=== PATIENT | male | born 1940 | race Caucasian/White ===

== ENCOUNTER 2018-08-04 08:49 | Inpatient (IN) | payer MEDICARE, OTHER ==
[~2018-08-04] VITALS: Ht 177.8 cm; Wt 79.5 kg
--- NOTE | ~2018-08-04 | CON ---
[facility] [address] [place] [address] CONSULTATION Name: DANILO RAMOS SR Room: [address] IN .R.#: [id number] Admission: 08/04/18 Attend Phys: Arline Dowd Discharge: Date of : 36 Report #: [id number] THIS REPORT FOR: //name// CC: Bala Stratton DATE OF SERVICE: 08/05/2018 HISTORY OF PRESENT ILLNESS: This is a 77-year-old male patient who was evaluated by me for dizziness. He said he had some dizziness yesterday. It started spontaneously without trauma. He said his eyes were jumping and he had some speech problem, but he has some speech problem in the baseline. He is better, but he is not back to his baseline. He had cardiac issues before, but he does not know whether he was having much cardiac problem when it happened. REVIEW OF SYSTEMS: Positive for associated nausea. He did have dizziness. He also vomited. 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 He had some injury to the left hand long time ago. His speech looks somewhat unusual, but I do not know how much it is baseline, looks like he does have a significant problem there in the baseline. He follows up with Dr. Ramos who is his agricultural adviser. He said he had MIs in the past. He denies any new eye, ENT, respiratory, , musculoskeletal, constitutional, dermatological, hematological, psychiatric, throat, allergic symptom associated with present symptomatology. PAST MEDICAL HISTORY: Positive for MIs. FAMILY HISTORY: Negative for early age strokes. SOCIAL HISTORY: He said he does not drink any alcohol or smoke. PHYSICAL EXAMINATION: Indicate he is alert, responsive. He can follow simple commands. Speech is somewhat unusual, but he is oriented. His memory and fund of knowledge is at his baseline. His cranial nerve examination 2-12 looks mostly unremarkable. He has amputation on the right leg, but his strength, sensation, reflexes and tone is okay on the left side. He does not have any [id number]-[id number] abnormality. I could not look at the patient's fundus. He does not have any meningeal sign. He is reasonably well-built individual who does not have any dysmorphic features of eyes, ears and face. His vision and hearing looks adequate. Cardiac examination is unremarkable. No respiratory difficulty or rhonchi was noted. Blood pressure is 123/53, pulse is 66, temperature is 98.2. LABORATORY DATA: White count is 5.2. Sodium is 137. Imaging study indicated that he had CT of the head, [place] [address] CONSULTATION Name: DANILO RAMOS SR Room: [address] IN ..#: [id number] Admission: 08/04/18 Attend Phys: Arline Dowd Discharge: Date of : 36 Report #: [id number] IMPRESSION: It is not clear what the etiology of his symptoms is. It is more likely to be systemic including ENT or cardiac pathology. However, this patient has pretty significant problem in the past and there is question of speech difficulty, so I will work him up for TIAs. We will await this workup and then decide about the further management depending upon rest of the workup. RECOMMENDATIONS: 1. MRI of the brain. 2. MRA of the head. 3. MRA of the neck. 4. If this workup shows something, we will proceed accordingly. If this workup does not show anything, then I will suggest continue to workup any systemic cause for the patient's problem. Thank you very much for this referral. By: 1207 [id number] Feliz MD /nt
--- NOTE | ~2018-08-04 | EEG ---
[address] [address] EEG STUDY REPORT Name: DANILO RAMOS SR Room: [address] IN [facility]#: [id number] Admission: 08/04/18 Attend Phys: Arline Dowd Discharge: Date of : 36 Report #: [id number] THIS REPORT FOR: //name// CC: Bala Stratton DATE OF SERVICE: 08/05/2018 This patient was admitted with myoclonic jerking. EEG was done to further evaluate that. This patient's background activity is about 9 Hz and 30 microvolt. It is a symmetrical activity. The patient goes to sleep that is associated with bilaterally symmetrical sleep spindle and vertex sharp waves. Photic stimulation is unremarkable. Throughout the record, no active epileptiform activity was noticed. IMPRESSION: This patient's EEG is intermixed with moderate amount of slowing on both sides. That is a nonspecific finding which can occur with encephalopathy, dementia, effect of psychotropic medication, etc. Clinical correlation is recommended. By: [id number] [id number] Feliz MD /nt
[~2018-08-04 08:49] MED LIST: ASPIR 8181 MG PO; ASPIRIN81 M2 PO; IMDUR 30 MG TAB30 M1 PO; IMDUR 60 MG TAB60 M1 PO; IMDUR30 MG PO; IRON PO; IRON325 PO; LISINOPRIL2.5 M1 PO; LISINOPRIL5 MG; LOPRESSOR50 PO; METOPROLOL SUCC25 M1 PO; NITROGLYCERIN0.4 MG SUBLING; PLAVIX 75 MG TA75 MG PO; PROBIOTIC1 EAC1 PO; PROBIOTIC1 EAC2 PO; SIMVASTATIN40 MG PO; VITAMIN D-32000 UNIT PO; VITAMIN D35000 UNI1 PO; VITAMINC500 PO
[2018-08-04 08:55] VITALS: BP 143/60
[2018-08-04 09:18] LABS: HEMATOCRIT 35.3 % (42.0-52.0); HEMOGLOBIN 12.3 gm/dL (14.0-18.0); MCH 30.7 pg (26.0-34.0); MCHC 34.8 g/dL (28.0-37.0); MCV 88.1 fL (80.0-100.0); MPV 6.9 fl. (7.2-11.1); NUCLEATED RBCS 0 /100WBC; PLATELET COUNT* 101 thou/uL (150-400); RDW-CV 12.9 % (10.5-14.5); WBC 5.2 thou/uL (4.0-11.0)
[2018-08-04 09:27] LABS: ANION GAP 4 mmol/L (7-16); BUN 16 mg/dL (7-18); CALCIUM 9.1 mg/dL (8.5-10.1); CHLORIDE 103 mmol/L (98-107); CO2 30 mmol/L (21-32); CREATININE 1.3 mg/dL (0.6-1.3); GLUCOSE 105 mg/dL (70-99); POTASSIUM 4.1 mmol/L (3.5-5.1); SODIUM 137 mmol/L (136-145)
[2018-08-04 09:38] LABS: ALBUMIN 3.3 g/dL (3.4-5.0); ALKALINE PHOSPHATASE 125 U/L (46-116); APTT 32.9 Seconds (25.0-31.3); PROTIME 10.6 Seconds (9.20-11.50); SGOT 17 U/L (15-37); SGPT 16 U/L (30-65); TOTAL BILIRUBIN 0.4 mg/dL (<0.1-1.0); TOTAL PROTEIN 6.1 g/dL (6.4-8.2); TROPONIN-I LEVEL <0.06 ng/mL (<0.06)
[2018-08-04 09:42] LABS: ABSOLUTE BASOPHILS 0.1 thou/uL (0.0-0.2); ABSOLUTE LYMPHOCYTES 0.8 thou/uL (0.8-5.3); ABSOLUTE MONOCYTES 0.2 thou/uL (0.0-1.2); ABSOLUTE NEUTROPHILS 4.2 thou/uL (1.6-8.1); ATYPICAL LYMPHS 4 %; PLATELET ESTIMATE ADEQUATE
[2018-08-04 09:56] LABS: NT-PRO BRAIN NAT PEPTIDE 211 pg/mL (<300)
[2018-08-04 14:06] VITALS: BP 158/69
[2018-08-04 14:54] VITALS: BP 146/66
[2018-08-04 15:05] LABS: URINE BILIRUBIN NEGATIVE (Negative); URINE BLOOD TRACE (Negative); URINE CLARITY CLEAR; URINE COLOR YELLOW; URINE GLUCOSE-RANDOM NEGATIVE (Negative); URINE KETONES NEGATIVE (Negative); URINE LEUKOCYTES-REFLEX NEGATIVE (Negative); URINE NITRITE-REFLEX NEGATIVE (Negative); URINE PROTEIN NEGATIVE (Negative); URINE UROBILINOGEN 0.2 E.U./dl (0.2-1.0)
[2018-08-04 16:00] VITALS: BP 123/60
--- NOTE | 2018-08-04 16:00 | NUR ---
PT. ARRIVED TO UNIT AT APPROX 1500. EEG COMPLETED UPON ARRIVAL TO UNIT. PT. A/OX4, VSS, MONITOR ON TRACING SR. PT. DENIES CURRENT PAIN/SOB. ON RA @ 94%. PT. DENYING DIZZINESS AT THIS TIME. ALSO HAS DENIED ANY CURRENT NAUSEA. FULL ASSESSMENT AND ADMISSION PROCESS COMPLETED, REFER TO CHARTING. PT ORIENTED TO ROOM/PROCEDURES. CALL LIGHT IN REACH, WILL CONTINUE WITH PLAN OF CARE.
--- NOTE | 2018-08-04 16:27 | EKG ---
[place] [address] ELECTROCARDIOGRAM REPORT Name: DANILO RAMOS SR Room: [address] ADM IN .R.#: [id number] Admission: 08/04/18 Attend Phys: Arline Dowd Discharge: Date of : 36 Report #: [id number] THIS REPORT FOR: //name// 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 08/04/18 [phone] [id number] Ayad Ramos MD, [facility] /EPI
[2018-08-04 20:00] VITALS: BP 119/59
--- NOTE | 2018-08-04 20:30 | NUR ---
PT. STABLE THROUG REMAINDER OF SHIFT. NO COMPLAINTS OF NAUSEA/DIZZINESS. TOLERATED CLEAR LIQUID DIET WELL. FAMILY AT THE BEDSIDE AND UPDATED ON CURRENT PLAN OF CARE. HOURLY ROUNDING COMPLETED THROUGH OUT THE DAY FOR PT. SAFETY.
[2018-08-05] VITALS: BP 102/44
[2018-08-05 04:00] VITALS: BP 111/52
--- NOTE | 2018-08-05 05:38 | NUR ---
ASSUMED PT CARE AT 1930. NURSING ASSESSMENT COMPLETED AT START OF SHIFT. 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 PT C/O DIZZYNESS WITH MOVEMENTS. HOURLY ROUNDING COMPLETED. HIGH FALL PRECAUTIONS IN PLACE, CALL LIGHT WITHIN REACH.
[2018-08-05 08:15] VITALS: BP 123/53
--- NOTE | 2018-08-05 08:15 | NUR ---
ASSUMED PT. CARE AND RECEIVED REPORT AT 0730. PT A/OX4, VSS, MONITOR ON TRACING SR. PT. DENIES CURRENT PAIN/SOB. REPORTS HE CONTINUES TO BECOME DIZZY AT TIMES, BUT ONLY WHEN MOVING. DENIES NAUSEA/VOMITING. REQUEST ADVANCE IN DIET, DISCUSSED WITH . FULL ASSESSMENT COMPLETED, REFER TO CHARTING. PT. 95% ON 2LNC. CALL LIGHT IN REACH, WILL CONTINUE WITH PLAN OF CARE.
--- NOTE | 2018-08-05 10:57 | NUR ---
Pt is A&O. Resides at home with his . Pt stated that he is independent with ADLs. Pt wears a right prothestic, states that when its not on, he uses a wc. No home o2. Hx of HH several years ago. No hx of SNF. Pt's goal is to return home at dc, no needs anticipated. Following.
[2018-08-05 12:00] VITALS: BP 106/52
[2018-08-05 15:54] VITALS: BP 100/47
--- NOTE | 2018-08-05 18:16 | 2DMMODE ---
[place] [address] 2 D/M-MODE ECHOCARDIOGRAM Name: DANILO RAMOS SR Room: [address] IN [facility]#: [id number] Admission: 08/04/18 Attend Phys: Fredi Stratton Discharge: Date of : 36 Date of Service: 08/05/18 1816 Report #: [id number] THIS REPORT FOR: //name// APPROVED REPORT Study performed: 08/05/2018 14:23:49 EXAM: Comprehensive 2D, Doppler, and color-flow Echocardiogram Patient Location: In-Patient Room #: 222 Status: routine BSA: 1.97 HR: 62 bpm BP: 106/52 mmHg Rhythm: NSR Other Information Study Quality: Good Indications Dizziness 2D Dimensions IVSd: 10.19 (7-11mm) LVOT Diam: 22.64 (18-24mm) LVDd: 38.64 mm PWd: 13.37 (7-11mm) Ascending Ao: 36.83 (22-36mm) LVDs: 21.92 (25-40mm) Aortic Root: 42.95 mm Volumes Left Atrial Volume (Systole) LA ESV Index: 27.60 mL/m2 Aortic Valve AoV Peak Umer.: 1.49 m/s AO Peak Gr.: 8.85 mmHg LVOT Max P.75 mmHg AO Mean Gr.: 5.52 mmHg LVOT Mean P.75 mmHg LVOT Max V: 0.97 m/s AO V2 VTI: 30.01 cm LVOT Mean V: 0.60 m/s PEEWEE (VTI): 2.82 cm2 LVOT V1 VTI: 21.03 cm AI [place]: 1.54 m/s2 AI PHT: 556.37 ms Mitral Valve E/A Ratio: 1.06 [place] [address] 2 D/M-MODE ECHOCARDIOGRAM Name: DANILO RAMOS SR Room: [address]#: [id number] Admission: 08/04/18 Attend Phys: Fredi Stratton Discharge: Date of : 36 Date of Service: 08/05/18 1816 Report #: [id number] MV Decel. Time: 269.35 ms MV E Max Umer.: 0.57 m/s MV PHT: 78.11 ms MVA (PHT): 2.82 cm2 TDI E/Lateral E': 4.75 E/Medial E': 4.38 Medial E' Umer.: 0.13 m/s Lateral E' Umer.: 0.12 m/s Pulmonary Valve PV Peak Umer.: 0.72 m/s PV Peak Gr.: 2.10 mmHg Tricuspid Valve RAP Estimate: 5.00 mmHg TR Peak Gr.: 21.48 mmHg RVSP: 26.00 mmHg PA Pressure: 26.00 mmHg Left Ventricle The left ventricle is normal size. There is normal LV segmental wall motion. Mild concentric left ventricular hypertrophy. Left ventricular systolic function is normal. LVEF is 65-70%. Transmitral Doppler flow pattern suggests impaired LV relaxation. Right Ventricle The right ventricle is normal size. The right ventricular systolic function is normal. Atria The left atrium size is normal. The right atrium size is normal. Aortic Valve Mild aortic valve sclerosis. Mild aortic regurgitation. There is no aortic valvular stenosis. Mitral Valve The mitral valve is normal in structure. Trace mitral regurgitation. No evidence of mitral valve stenosis. Tricuspid Valve The tricuspid valve is normal in structure. Trace tricuspid regurgitation. No pulmonary hypertension. Pulmonic Valve The pulmonary valve is normal in structure. [place] [address] 2 D/M-MODE ECHOCARDIOGRAM Name: DANILO RAMOS SR Room: [address]#: [id number] Admission: 08/04/18 Attend Phys: Fredi Stratton Discharge: Date of : 36 Date of Service: 08/05/18 1816 Report #: [id number] regurgitation. Great Vessels The aortic root is normal in size. IVC is not visualized. Pericardium There is no pericardial effusion. <Conclusion> The left ventricle is normal size. Mild concentric left ventricular hypertrophy. Left ventricular systolic function is normal. LVEF is 65-70%. Transmitral Doppler flow pattern suggests impaired LV relaxation. Mild aortic valve sclerosis. Mild aortic regurgitation. Trace mitral regurgitation. Trace tricuspid regurgitation. No pulmonary hypertension. <ELECTRONICALLY SIGNED> By: Silvestre Arguello MD, FACC 08/05/181815 15 15 Silvestre Arguello MD, FACC /INF
[2018-08-05 20:00] VITALS: BP 108/49
--- NOTE | 2018-08-05 20:23 | NUR ---
PT. STABLE THROUGH OUT SHIFT. NO NEW COMPLAINTS OF NAUSEA, TOLERATED REGULAR DIET WELL. HOURLY ROUNDING COMPLETE THROUGH OUT THE DAY FOR PT. SAFETY.
[2018-08-06] VITALS: BP 118/52
[2018-08-06 04:00] VITALS: BP 119/50
--- NOTE | 2018-08-06 05:32 | NUR ---
ASSUMED PT CARE AT 1930. NURSING ASSESSMENT COMPLETED AT START OF SHIFT. PT VOICED NO CONCERNS. 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 HOURLY ROUNDING COMPLETED. CALL LIGHT REMAINS WITHIN REACH. DENIES N/V THIS SHIFT. STATES HE STILL GETS DIZZY WITH MOVEMENTS.
--- NOTE | 2018-08-06 07:20 | NUR ---
CHANGE OF SHIFT BEDSIDE REPORT GIVEN PATIENT SEEN AT BEDSIDE, IN BED RESTING ASSUMED PATIENT CARE
[2018-08-06 08:00] VITALS: BP 134/55
[2018-08-06 10:59] VITALS: BP 134/55
[2018-08-06 11:43] VITALS: BP 131/55
--- NOTE | 2018-08-06 14:25 | NUR ---
PATIENT DISCHARGED TO HOME ALL DC INSTRUCTIONS GIVEN, ACKNOLWEDGED, SIGNED COPIES GIVEN IV AND HEART MONITOR REMOVED PERSONAL BELONGINGS RETURNED ASSISTED OUT VIA WC TO WAITING CAR
== END 2018-08-06 14:25 | disposition home or self-care (01) | DRG 149 ==
LOC: M.ERS 08:49 → M.2W 09:46 → M.TBA-ER 09:46 → M.2W 15:11
PROVIDERS: Family Medicine; ADMIT Internal Medicine
DX: H81.10 Benign paroxysmal vertigo, unspecified ear (principal); I10 Essential (primary) hypertension; H81.90 Unspecified disorder of vestibular function, unspecified ear; Z89.611 Acquired absence of right leg above knee; Z88.6 Allergy status to analgesic agent; I25.2 Old myocardial infarction; Z95.5 Presence of coronary angioplasty implant and graft; Z87.891 Personal history of nicotine dependence; Z79.82 Long term (current) use of aspirin; Z79.899 Other long term (current) drug therapy

== ENCOUNTER 2019-05-10 04:11 | Observation (INO) | payer MEDICARE, OTHER ==
[~2019-05-10] VITALS: Ht 188 cm; Wt 65.1 kg
[2019-05-10] VITALS (7 sets, daily range): BP systolic 135–161; BP diastolic 58–80
--- NOTE | ~2019-05-10 | EMS ---
[facility] [address] [place] [address] EMS Patient Care Report Name: DANILO RAMOS [id number] Ad[facility]: 05/10/19 Attend Phys: Discharge: Date of : 36 Report #: [id number] THIS REPORT FOR: //name// Report Transmitted: 05/10/2019 03:58 EMS Care Summary [facility] Incident [id number] @ 05/10/2019 02:55 Incident Location [address] [place] [address] Patient DANILO RAMOS Male, 78 Years 1940 Patient Address [address] [place] [address] Patient History Other,Hyperlipidemia,Amputee,Cardiac - Stent, Patient Allergies Ibuprofen, Patient Medications Plavix, ASA, Metoprolol, Nitroglycerin, Lisinopril, Isosorbide, Chief Complaint Chest Pain Disposition Transported No Lights/[place] Dispatch Reason Chest Pain Transported To [facility] Narrative D- [facility] dispatched on a chest pain at a local residence. CC- On EMS arrival, the pt was sitting in the front room in his wheelchair. Pt stated that he had had chest pain on his left side [place] [address] EMS Patient Care Report Name: DANILO RAMOS Room: [employer]#: [id number] Admission: 05/10/19 Attend Phys: Discharge: Date of : 36 Report #: [id number] arm. H- Pt stated that he had had "3 heart attacks" in the past and that the pain of this incident felt similar to those. Pt stated that he had woken up with chest pain, that he described as on his left side and "the feeling of pressure". Pt stated that the pain had started on his left lateral side and radiated upwards towards his arm and then down his arm. Pt stated that he had taken nitro prior to EMS arrival and that the pain had started to alleviate when EMS arrived. Pt stated that he was "feeling normal" prior to going to bed. Pt also stated that he had been eating and drinking normally. Pt stated that the "only other time" he felt pain like this was when he was "having a heart attack" and that it was abnormal for him. Pt stated that he did not have any difficulty breathing and the pain did not alleviate or worsen with breathing or pressure on chest. A- See "Assessment" Tab Initial assessment- Airway patent, breathing spontaneous and non-labored, circulation strong and regular. Pt was MONTEJO to PPTE. Skin warm, dry and flushed. No bleeding or immediate life threats noted. R- Pt required further assessment by a physician at an appropriate ED. Delay in transport due to education of pt for proper hospital assignment due to current complaint. T- Vitals and assessments obtained. EKG placed with NSR noted on the monitor and 12-lead placed with possible RBBB noted. Oral ASA given around pt arrival. IV established in LAC with blood draw attempted. Blood glucose levels and oral temperature obtained. Pt was assisted to cot from wheelchair and placed in position of comfort. Pt was secured to cot using straps provided and then secured into ambulance. Radio report given to ED. Pt was continually reassessed during transport. S- Pt stated that his pain had "completely" alleviated at the end of transport. Pt remained on cot for duration of transport. Pt also talked for duration of transport. At receiving hospital, pt care was transferred to nursing staff with verbal report given. RTS Keith Myrick, DIORP Initial Vitals @03:54P: 78,R: 12,BP: 151/80,Pain: 0/10,GCS: 15,SpO2: 96,Revised Trauma: 12, @03:34P: 79,R: 12,BP: 105/68,Pain: 2/10,GCS: 15,Temp: 98.1F,Glucose: 146,SpO2: 97,Revised Trauma: 12, @03:08P: 82,R: 18,Pain: 8/10,GCS: 15,SpO2: 98,3-Lead ECG: Sinus RhythmMI Suspected: false @03:14P: 78,R: 12,BP: 157/79,Pain: 6/10,GCS: 15,SpO2: 97,Revised Trauma: 12,3-Lead ECG: [place] [address] EMS Patient Care Report Name: DANILO RAMOS SR [facility] [id number] Admission: 05/10/19 Attend Phys: Discharge: Date of : 36 Report #: [id number] @04:01P: 73,R: 16,Pain: 0/10,GCS: 15,3-Lead ECG: Sinus Rhythm Assessments @03:03MENTAL:Person Oriented,Time Oriented,Event Oriented,Place Oriented,SKIN:HEENT:Eyes: Left Pupil: 3-mm,Eyes: Right Pupil: 3-mm,Head/Face: No Abnormalities,Neck/Airway: No Abnormalities,LUNG SOUNDS:ABDOMEN:PELVIS//GI:EXTREMITIES:Right Leg: Other,Capillary Refill: Left Upper: < 2 Sec,PULSE:Radial: 2+ Normal,NEURO:@03:53MENTAL:Person Oriented,Event Oriented,Place Oriented,Time Oriented,SKIN:HEENT:Eyes: Left Pupil: 3-mm,Eyes: Right Pupil: 3-mm,Head/Face: No Abnormalities,Neck/Airway: No Abnormalities,LUNG SOUNDS:ABDOMEN:PELVIS//GI:No Abnormalities,EXTREMITIES:Capillary Refill: Left Upper: < 2 Sec,Right Leg: Other,Left Arm: No Abnormalities,Right Arm: No Abnormalities,Left Leg: No Abnormalities,PULSE:Radial: 2+ Normal,NEURO:No Abnormalities, Impression Chest Pain / Discomfort Procedures @03:26Normal Saline (.9% NaCl) 10cc (20 ga) Site: Antecubital-LeftResponse: UnchangedSucceeded@03:28 cc (20 ga) Site: Antecubital-LeftResponse: UnchangedFailed@03:03ALS AssessmentResponse: UnchangedSucceeded@03:06Aspirin - 324 mg - OralResponse: Improved@PTANitrostat - 0.4 mg - OralResponse: Improved@04:0112-Lead ECGResponse: UnchangedSucceeded@03:0812-Lead ECGResponse: UnchangedSucceeded Timeline 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,Nitrostat - 0.4 mg - Oral,Response: Improved 02:55,Call Received 02:55,Dispatched 02:59,En Route 03:01,On Scene 03:03,At Patient 03:03,ALS Assessment,Response: UnchangedSucceeded, 03:06,Aspirin - 324 mg - Oral,Response: Improved 03:08,12-Lead ECG,Response: UnchangedSucceeded, 03:08,BP: / M,PULSE: 82,RR: 18 R,SPO2: 98 Ox,ETCO2: ,BG: ,PAIN: 8,GCS: 15, 03:14,BP: 157/79 M,PULSE: 78,RR: 12 R,SPO2: 97 Ox,ETCO2: ,BG: ,PAIN: 6,GCS: 15, 03:26,Normal Saline (.9% NaCl) 10cc 20 ga Site: Antecubital-Left,Response: UnchangedSucceeded, 03:28, cc 20 ga Site: Antecubital-Left,Response: UnchangedFailed, 03:30,Depart Scene 03:34,BP: 105/68 M,PULSE: 79,RR: 12 R,SPO2: 97 Ox,ETCO2: ,B,PAIN: 2,GCS: 15, 03:54,BP: 151/80 M,PULSE: 78,RR: 12 R,SPO2: 96 Ox,ETCO2: ,BG: ,PAIN: 0,GCS: 15, 04:01,12-Lead ECG,Response: UnchangedSucceeded, [place] [address] EMS Patient Care Report Name: DANILO RAMOS SR Room: [facility]#: [id number] Admission: 05/10/19 Attend Phys: Discharge: Date of : 36 Report #: [id number] 04:01,BP: / M,PULSE: 73,RR: 16 R,SPO2: Ox,ETCO2: ,BG: ,PAIN: 0,GCS: 15, 04:07,At Destination 04:54,Call Closed Disclaimer v1.1 Copyright 2019 [employer] This EMS Care Summary contains data elements from the applicable legal record (which may be displayed differently). It is designed to provide pertinent information for the following purposes: continuity of care, clinical quality, and state data reporting. The complete legal record is available to ED staff and administrators of the receiving hospital in [employer]'s Patient Tracker. All data is provided "as is."
[~2019-05-10 04:11] MED LIST changes: +VITAMIN D32000 UNIT PO; -VITAMIN D35000 UNI1 PO
[2019-05-10 04:46] LABS: ABSOLUTE EOSINOPHILS 0.2 thou/uL (0.0-0.7); ABSOLUTE LYMPHOCYTES 0.7 thou/uL (0.8-5.3); ABSOLUTE MONOCYTES 0.5 thou/uL (0.0-1.2); ABSOLUTE NEUTROPHILS 3.9 thou/uL (1.6-8.1); BASOPHILS 0.8 %; EOSINOPHILS 3.9 %; HEMATOCRIT 35.4 % (42.0-52.0); HEMOGLOBIN 12.2 gm/dL (14.0-18.0); LYMPHOCYTES 13.8 %; MCH 30.3 pg (26.0-34.0); MCHC 34.4 g/dL (28.0-37.0); MCV 88.1 fL (80.0-100.0); MONOCYTES 8.9 %; MPV 6.6 fl. (7.2-11.1); NUCLEATED RBCS 0 /100WBC; PLATELET COUNT* 113 thou/uL (150-400); POLYS 72.6 %; RBC 4.02 mil/uL (4.50-6.00); RDW-CV 13.4 % (10.5-14.5); WBC 5.3 thou/uL (4.0-11.0)
[2019-05-10 04:57] LABS: PROTIME 10.6 Seconds (9.20-11.50)
[2019-05-10 05:44] LABS: CALCIUM 10.2 mg/dL (8.5-10.1); CREATININE 1.2 mg/dL (0.6-1.3); POTASSIUM 3.8 mmol/L (3.5-5.1)
[2019-05-10 05:55] LABS: ALBUMIN 3.6 g/dL (3.4-5.0); TOTAL BILIRUBIN 0.3 mg/dL (<0.1-1.0); TOTAL PROTEIN 6.2 g/dL (6.4-8.2)
[2019-05-10 09:07] LABS: CHOLESTEROL 134 mg/dL (<200); HDL CHOLESTEROL 46 mg/dL (>40); LDL CHOLESTEROL 67 mg/dL (<100); TC:HDL 2.9 Ratio (Not establshd); TRIGLYCERIDE 105 mg/dL (<150); VLDL 21 mg/dL (<40)
[2019-05-10 09:16] LABS: SERUM ASSESSMENT Clear
--- NOTE | 2019-05-10 16:53 | CARDNUC ---
[place] [address] CARDIAC NUCLEAR IMAGING REPORT Name: DANILO RAMOS SR [address] [id number] Admission: 05/10/19 Attend Phys: Grey Felton, Discharge: Date of : 36 Date of Service: 05/10/19 1652 Report #: [id number] THIS REPORT FOR: //name// APPROVED REPORT Imaging Protocol: Stress Tc-99m/Rest Tc-99m 1 day Study performed: 05/10/2019 10:00:00 Indication: Chest pain, Dizziness. Patient Location: In-Patient Room #: 215 Stress Tech: Shweta Li Stress Nurse: Sue Arceo RN Ht: 6 ft 2 in Wt: 165 lbs BSA: 2.00 m2 BMI: 21.18 Medical History Medical History: Angina, CAD s/p NV, CAD s/p stent, Fatigue, Former Smoker, HTN, Hyperlipidemia, RBBB, Weakness, R-AKA, Dizziness, AAA. Medications: Nitrostat paste, Atorvastatin, ASA 81 MG, Plavix, Lisinopril, Metoprolol. Home meds incl. Imdur. Allergies: Ibuprofen. Cardiac Risk Factors: Age, FHX of CAD, HTN, Hyperlipidemia, Past Smoker, AAA. Previous Cardiac Procedures: Myocardial infarction, PCI Pretest Chest Pain Characteristics: No chest pain Exercise History: Sedentary Physical Disabilities: Right AKA Meds Held (24 hrs): Metoprolol, Nitrostat paste held 5+ hours. Resting Data Rest SPECT myocardial perfusion imaging was performed in supine position 30 minutes following the intravenous injection of 11.6 mCi of Tc-99m Sestamibi. Time of rest injection: 12:05 The images were gated to evaluate regional wall motion and calculate left ventricular ejection fraction. Administration Route: IV Administration Site: Left AC Pharmacologic Stress Pharmacologic stress test was performed by injecting Regadenoson 0.4 [place] [address] CARDIAC NUCLEAR IMAGING REPORT Name: DANILO RAMOS SR Room: [address]#: [id number] Admission: 05/10/19 Attend Phys: Grey Felton, Discharge: Date of : 36 Date of Service: 05/10/19 1652 Report #: [id number] IV push over 10-15 seconds immediately followed by the intravenous injection of 27.6 mCi of Tc-99m Sestamibi. Time of stress injection: 14:00 Administration Route: IV Administration Site: Left AC Heart Rate at time of stress injection: 108 bpm. Gated Stress SPECT was performed 40 minutes after stress injection. The images were gated to evaluate regional wall motion and calculate left ventricular ejection fraction. Stress Test Details Stress Test: Pharmacologic stress testing performed using 0.4 mg of regadenoson per 5 mL given IV over 10 seconds. Reason for pharmacologic stress test: Right AKA. HR Max Heart Rate (APMHR): 140 bpm Resting HR: 81 bpm Target HR (85% APMHR): 119 bpm Max HR Achieved: 108 bpm % of APMHR: 77 Recovery HR: 90 bpm BP Resting BP: 127/57 mmHg Max BP: 120/63 mmHg Recovery BP: 160/93 mmHg ECG Resting ECG: Sinus Rhythm Stress ECG: Sinus Tachycardia ST Change: None Arrhythmia: VPC's Recovery ECG: Sinus Rhythm Recovery ST Change: None Recovery Arrhythmia: VPC's Clinical Reason for Termination: Completed protocol Stress Symptoms: Dizziness, increased PVC's. Exercise duration: 00 min 00 sec Exercise capacity: 1.00 METs The patient tolerated Lexiscan infusion without significant cardiac symptoms. Nurse Comments An 78 year old male inpatient presented for sitting Lexiscan r/t CP and Dizziness. Patient tolerated test well. [place] [address] CARDIAC NUCLEAR IMAGING REPORT Name: DANILO RAMOS SR Room: [address] [place]#: [id number] Admission: 05/10/19 Attend Phys: Grey Felton, Discharge: Date of : 36 Date of Service: 05/10/19 1652 Report #: [id number] with PO caffeine, effective. Patient was escorted via wheelchair by staff to Nuclear Medicine for images. Patient was stable with no complaints at that time. Stress ECG Conclusion The baseline 12-lead EKG shows sinus rhythm without significant ST or T-wave abnormalities. There were occasional unifocal premature ventricular contractions noted. EKGs obtained during and post Lexiscan infusion show sinus rhythm with no significant ST or T wave changes when compared to baseline. There continued to be unifocal premature ventricular contractions. No other significant cardiac arrhythmias were noted. Study Quality Study: Good Artifact: Mild Diaphragmatic artifact Study Data At rest, the left ventricular ejection fraction was 67%.. Post stress, the left ventricular ejection was 64%.. TID = 0.96. Perfusion Perfusion images obtained at rest show a moderate intensity large in size defect from the base to apex of the inferior wall that is less pronounced on post stress imaging. Wall motion in this region appears normal on gated studies suggesting diaphragmatic attenuation artifact. No other significant fixed or reversible defects were identified. Wall Motion Normal left ventricular wall motion. Nuclear Conclusion ECG Findings: negative for ischemia Clinical Findings: negative for ischemia Nuclear Findings: negative for ischemia Exercise Capacity: not assessed Left Ventricular Function: normal Myocardial perfusion images show no reversible defect to suggest ischemia. There is a defect of the inferior wall that is more pronounced on resting and stress images consistent with diaphragmatic attenuation artifact. Global LV systolic function is normal on gated studies. This is a low risk study. <Conclusion> [place] [address] CARDIAC NUCLEAR IMAGING REPORT Name: DANILO RAMOS SR Room: [address] [place]#: [id number] Admission: 05/10/19 Attend Phys: Grey Felton, Discharge: Date of : 36 Date of Service: 05/10/19 1652 Report #: [id number] The baseline 12-lead EKG shows sinus rhythm without significant ST or T-wave abnormalities. There were occasional unifocal premature ventricular contractions noted. EKGs obtained during and post Lexiscan infusion show sinus rhythm with no significant ST or T wave changes when compared to baseline. There continued to be unifocal premature ventricular contractions. No other significant cardiac arrhythmias were noted. <ELECTRONICALLY SIGNED> By: Silvestre Arguello MD, FACC 05/10/191651 51 51 Silvestre Arguello MD, FACC /INF
--- NOTE | 2019-05-10 17:45 | 2DMMODE ---
[place] [address] 2 D/M-MODE ECHOCARDIOGRAM Name: DANILO RAMOS SR Room: [address] Fitz#: [id number] Admission: 05/10/19 Attend Phys: Grey Felton, Discharge: Date of : 36 Date of Service: 05/10/19 1745 Report #: [id number] THIS REPORT FOR: //name// APPROVED REPORT Study performed: 05/10/2019 10:30:52 EXAM: Comprehensive 2D, Doppler, and color-flow Echocardiogram BSA: 1.86 HR: 69 bpm BP: 150/69 mmHg Other Information Study Quality: Technically Difficult Indications Chest Pain 2D Dimensions IVSd: 17.60 (7-11mm) LVOT Diam: 17.91 (18-24mm) LVDd: 44.44 mm PWd: 11.40 (7-11mm) Ascending Ao: 37.05 (22-36mm) LVDs: 29.24 (25-40mm) Aortic Root: 27.81 mm Volumes Left Atrial Volume (Systole) LA ESV Index: 32.80 mL/m2 Aortic Valve AoV Peak Umer.: 0.89 m/s AO Peak Gr.: 3.17 mmHg LVOT Max P.22 mmHg AO Mean Gr.: 1.85 mmHg LVOT Mean P.66 mmHg LVOT Max V: 0.55 m/s AO V2 VTI: 17.35 cm LVOT Mean V: 0.38 m/s PEEWEE (VTI): 1.83 cm2 LVOT V1 VTI: 12.61 cm Mitral Valve E/A Ratio: 0.94 MV Decel. Time: 172.66 ms MV E Max Umer.: 0.44 m/s MV PHT: 50.07 ms MVA (PHT): 4.39 [place]2 [place] [address] 2 D/M-MODE ECHOCARDIOGRAM Name: DANILO RAMOS SR Room: [address] Fitz#: [id number] Admission: 05/10/19 Attend Phys: Grey Felton, Discharge: Date of : 36 Date of Service: 05/10/19 1745 Report #: [id number] TDI E/Lateral E': 4.00 E/Medial E': 5.50 Medial E' Umer.: 0.08 m/s Lateral E' Umer.: 0.11 m/s Pulmonary Valve PV Peak Umer.: 0.84 m/s PV Peak Gr.: 2.80 mmHg Tricuspid Valve RAP Estimate: 5.00 mmHg TR Peak Gr.: 13.52 mmHg RVSP: 18.52 mmHg PA Pressure: 18.52 mmHg Left Ventricle The left ventricle is normal size. There is mild apical hypokinesis. There is normal left ventricular wall thickness. Left ventricular systolic function is normal. The left ventricular ejection fraction is within the normal range. LVEF is 55-60%. Grade I - abnormal relaxation pattern. Right Ventricle The right ventricle is normal size. The right ventricular systolic function is normal. Atria The left atrium size is normal. Right atrium is mildly dilated. Aortic Valve Mild aortic valve sclerosis. No aortic regurgitation is present. There is no aortic valvular stenosis. Mitral Valve The mitral valve is normal in structure. Mild mitral regurgitation. No evidence of mitral valve stenosis. Tricuspid Valve The tricuspid valve is normal in structure. There is no tricuspid valve regurgitation noted. Pulmonic Valve The pulmonary valve is normal in structure. There is no pulmonic valvular regurgitation. Great Vessels The aortic root is normal in size. IVC is [place] [address] 2 D/M-MODE ECHOCARDIOGRAM Name: DANILO RAMOS SR Room: [address]#: [id number] Admission: 05/10/19 Attend Phys: Grey Felton, Discharge: Date of : 36 Date of Service: 05/10/19 1745 Report #: [id number] collapses >50% with inspiration. Pericardium There is no pericardial effusion. <Conclusion> The left ventricle is normal size. There is normal left ventricular wall thickness. Left ventricular systolic function is normal. The left ventricular ejection fraction is within the normal range. LVEF is 55-60%. Grade I - abnormal relaxation pattern. The right ventricle is normal size. The left atrium size is normal. Mild aortic valve sclerosis. The mitral valve is normal in structure. Mild mitral regurgitation. The tricuspid valve is normal in structure. IVC is normal in size and collapses >50% with inspiration. There is no pericardial effusion. There is mild apical hypokinesis. <ELECTRONICALLY SIGNED> By: Ayad Ramos MD, FACC 05/10/19 174 44 44 Ayad Ramos MD, FACC /INF
[2019-05-11] VITALS: BP 121/58
[2019-05-11 04:00] VITALS: BP 110/64
[2019-05-11 07:57] VITALS: BP 121/61
--- NOTE | 2019-05-11 08:41 | EKG ---
[place] [address] ELECTROCARDIOGRAM REPORT Name: DANILO RAMOS Room: [address] M.R.#: [id number] Admission: 05/10/19 Attend Phys: Grey Felton MD Discharge: Date of : 36 Report #: [id number] THIS REPORT FOR: //name// [facility] ED Test Date: 2019-05-10 Test Time: 04:16:08 Pat Name: DANILO RAMOS Department: Room: [facility] Gender: M [employer]: AJ : 1940 Requested By: Eugenia Silva Order Number: [id number] MD: Silvestre Arguello Measurements Intervals [place] Rate: 69 P: 20 IL: 191 QRS: 22 QRSD: 147 T: 73 QT: 414 QTc: 444 Interpretive Statements Sinus rhythm Ventricular premature complex Right bundle branch block Compared to ECG 08/04/2018 09:08:55 Ventricular premature complex(es) now present Electronically Signed On 05-11-2019 8:41:03 CDT by Silvestre Arguello [email or web address] <ELECTRONICALLY SIGNED> By: Silvestre Arguello MD, FACC 05/11/19 [id number] [id number] Silvestre Arguello MD, [facility] /EPI
[2019-05-11 10:01] VITALS: BP 121/61
== END 2019-05-11 13:35 | disposition home or self-care (01) ==
LOC: M.ERS 04:11 → M.TBA-ER 05:20 → M.2W 05:20
PROVIDERS: Emergency Medicine; Registered Nurse; ADMIT Internal Medicine
DX: R07.89 Other chest pain (principal); I25.118 Atherosclerotic heart disease of native coronary artery with other forms of angina pectoris; I10 Essential (primary) hypertension; E78.5 Hyperlipidemia, unspecified; M88.8 Osteitis deformans of other bones; E83.52 Hypercalcemia; K76.9 Liver disease, unspecified; R79.1 Abnormal coagulation profile; I71.3 Abdominal aortic aneurysm, ruptured; Z95.828 Presence of other vascular implants and grafts; Z79.899 Other long term (current) drug therapy; Z87.891 Personal history of nicotine dependence; Z95.5 Presence of coronary angioplasty implant and graft